=== PATIENT | female | born 1995 | race Asian ===

== ENCOUNTER 2019-07-03 04:26 | Emergency (ER) | payer OTHER ==
--- NOTE | 2019-07-03 04:32 | NUR ---
Patient to ER [facility] for BA.
--- NOTE | 2019-07-03 04:57 | NUR ---
Written and verbal consent obtained from patient for blood alcohol, name and verified by patient. Disinfected patient's skin with IODINE that did not contain alcohol or other volatile organic compound. Collected the blood from the subject named by venipuncture, in the presence of Officer OLIVIA# [id number]. Used a sterile, dry hypodermic needle and dry vacuum blood collection. Two dry vacuum blood collection was supplied by the officer named above. Withdrew a specimen of blood from [facility] of the subject named above. Inverted both blood tube several times to ensure that the preservative and anticoagulant were thoroughly mixed in the blood specimen. I initialed both blood tube label for identification. The labeled blood tubes was handed directly to the Officer named above. The blood tubes stopper remained in place while I had possession of the blood tubes. The Officer placed tubes into envelope and sealed it in my presence. Envelope initialed by myself and Officer named above. Patient tolerated well, bandage applied, and bleeding controlled.
== END 2019-07-03 04:57 ==
LOC: SED 04:26
DX: Z02.89 Encounter for other administrative examinations (principal)